=== PATIENT | female | born 1990 | race Caucasian/White ===

== ENCOUNTER 2020-09-24 19:44 | Emergency (ER) | payer OTHER ==
[~2020-09-24 19:44] MED LIST: AZITHROMYCIN250 MG PO; BACLOFEN 10MG T10 MG PO; COMPRESSION TH1 EACH XX; METHYLERGONOVI0.2 MG PO; NAPROXEN500 MG PO; NORCO 5-325 TA1 EACH PO
[2020-09-24 21:21] LABS: BILIRUBIN NEGATIVE (NEGATIVE); BLOOD NEGATIVE Ery/uL (NEGATIVE); CLARITY CLEAR (CLEAR); COLOR YELLOW (YELLOW); GLUCOSE (U) NORMAL (NORMAL); LEUKOCYTES NEGATIVE Leu/uL (NEGATIVE); NITRITE NEGATIVE (NEGATIVE); PROTEIN NEGATIVE (NEGATIVE); SPECIFIC GRAVITY >=1.030 (1.001-1.030); UROBILINOGEN 0.2 mg/dL (0.2-1.0)
[2020-09-24 22:05] LABS: BASOPHIL 0.2 % (0-2); EOSINOPHIL 2.4 % (0-5); HCT 36.4 % (37.0-47.0); HGB 12.1 g/dl (12.5-16.0); MCH 30.9 pg (25.0-31.0); MCHC 33.2 g/dL (32.0-36.0); MCV 93.1 fL (78.0-100.0); MONOCYTE 7.4 % (0-12); MPV 10.6 fL (6.0-9.5); NEUTROPHIL 54.9 % (41-80); NRBC 0; PLT 234 K/uL (150-400); RBC 3.91 M/uL (4.20-5.40); RDW 13.7 % (11.5-14.0); WBC 8.2 K/uL (4.0-10.5)
[2020-09-24 22:22] LABS: ALBUMIN 3.7 g/dL (3.4-5.0); BILIRUBIN - TOTAL 0.4 mg/dL (0.2-1.0); CREATININE 0.69 mg/dL (0.51-0.95); GLOBULIN (CALCULATION) 3.6 g/dL; POTASSIUM 3.5 mmol/L (3.5-5.1); TOTAL PROTEIN 7.3 g/dL (6.4-8.2)
[2020-09-24 22:27] LABS: LACTIC ACID 0.4 mmol/L (0.4-1.9)
[2020-09-24] MEDS ORDERED: NAPROSYN375 MG PO (22:58)
== END 2020-09-24 23:10 | disposition home or self-care (01) ==
LOC: FER 19:44
PROVIDERS: Emergency Medicine
DX: N39.0 Urinary tract infection, site not specified (principal); F17.200 Nicotine dependence, unspecified, uncomplicated; Z98.890 Other specified postprocedural states; Z91.040 Latex allergy status; Z88.0 Allergy status to penicillin
CPT/HCPCS: 36415; 80053; 81003; 83605; 85025; J1885; J2270; J2405; J7030

== ENCOUNTER 2021-05-06 18:01 | Emergency (ER) | payer OTHER ==
[~2021-05-06 18:01] MED LIST changes: +NAPROSYN375 MG PO
[2021-05-06 18:37] LABS: CLARITY CLEAR (CLEAR); COLOR YELLOW (YELLOW)
[2021-05-06 18:38] LABS: BILIRUBIN NEGATIVE (NEGATIVE); BLOOD NEGATIVE Ery/uL (NEGATIVE); GLUCOSE (U) NORMAL (NORMAL); LEUKOCYTES NEGATIVE Leu/uL (NEGATIVE); NITRITE NEGATIVE (NEGATIVE); PROTEIN NEGATIVE (NEGATIVE); URINARY WBC RARE; UROBILINOGEN 0.2 mg/dL (0.2-1.0); pH 6.5 (5.0-9.0)
[2021-05-06 18:39] LABS: BACTERIA TRACE
[2021-05-06 19:24] LABS: HCG (URINE) SCREEN NEGATIVE (NEGATIVE)
[2021-05-06 21:00] LABS: CORONAVIRUS 2019 SARS-COV-2 NEGATIVE (NEGATIVE); INFLUENZA A NAA NEGATIVE (NEGATIVE)
== END 2021-05-06 21:57 | disposition home or self-care (01) ==
LOC: FER 18:01
PROVIDERS: Emergency Medicine; Physician Assistant
DX: M54.50 Low back pain, unspecified (principal); Z20.822 Contact with and (suspected) exposure to COVID-19; Z88.0 Allergy status to penicillin; Z91.040 Latex allergy status
CPT/HCPCS: 81001; 84703; 99283; J1885; U0002

== ENCOUNTER 2021-08-14 12:54 | Emergency (ER) | payer OTHER | END 2021-08-14 16:07 | disposition home or self-care (01) | LOC: FER 12:54 | DX: R55 Syncope and collapse (principal); J45.909 Unspecified asthma, uncomplicated; Z88.0 Allergy status to penicillin; Z91.040 Latex allergy status; Z28.310 Unvaccinated for COVID-19 | CPT/HCPCS: 99283 ==

== ENCOUNTER 2021-09-18 07:10 | Emergency (ER) | payer OTHER ==
[2021-09-18 07:59] LABS: BILIRUBIN NEGATIVE (NEGATIVE); BLOOD NEGATIVE Ery/uL (NEGATIVE); CLARITY CLEAR (CLEAR); COLOR YELLOW (YELLOW); GLUCOSE (U) NORMAL (NORMAL); LEUKOCYTES NEGATIVE Leu/uL (NEGATIVE); NITRITE NEGATIVE (NEGATIVE); PROTEIN NEGATIVE (NEGATIVE); SPECIFIC GRAVITY 1.025 (1.001-1.030); UROBILINOGEN 0.2 mg/dL (0.2-1.0); pH 6.5 (5.0-9.0)
[2021-09-18 09:16] LABS: INFLUENZA A NAA NEGATIVE (NEGATIVE)
[2021-09-18 09:46] LABS: CORONAVIRUS 2019 SARS-COV-2 POSITIVE (NEGATIVE)
== END 2021-09-18 10:07 | disposition home or self-care (01) ==
LOC: FER 07:10
PROVIDERS: Emergency Medicine
DX: R51.9 Headache, unspecified (principal); J06.9 Acute upper respiratory infection, unspecified; J45.909 Unspecified asthma, uncomplicated; F17.200 Nicotine dependence, unspecified, uncomplicated; Z88.0 Allergy status to penicillin; Z91.040 Latex allergy status; Z20.822 Contact with and (suspected) exposure to COVID-19; Z28.310 Unvaccinated for COVID-19
CPT/HCPCS: 81003; J0780; J1200; J1885; J7030; U0002